=== PATIENT | male | born 1935 | race Caucasian/White ===

== ENCOUNTER 2017-02-03 07:28 | Outpatient (CLI) | payer MEDICARE ==
[~2017-02-03] VITALS: Ht 182.9 cm; Wt 104.5 kg
--- NOTE | ~2017-02-03 | HEMODYNAMI ---
PATIENT:MELLISA MCINTYRE MEDICAL RECORD: [id number] : 37 [facility] AD[facility] DATE: 02/03/17 Generatedon:02/03/201710:05 Patient name: MELLISA MCINTYRE Patient #: [id number] SSN: : 1935 Date of study: 02/03/2017 Page: Of Hemodynamic Procedure Report Patient Data Patient Demographics Procedure consent was obtained First Name: MELLISA Gender: Male Last Name: FRANCISCO JAVIER : 1935 [facility] Initial: TIP Age: 81 year(s) Patient #: [id number] Race: Unknown Additional ID: [id number] Contact details [address]: [address] [place] [address] DRIVE State: [place] City: [place] Zip code: [address] Admission Admission Data Admission Date: 02/03/2017 Admission Time: 7:28 Lab Results Lab Result Date: 02/03/2017 Lab Result Time: 0:00 Biochemistry Name Units Result Min Max BUN mg/dl 20 --(----)*- 7 18 Creatinine mg/dl 1.4 --(----)*- 0.6 1.3 CBC Name Units Result Min Max Hemoglobin g/dl 15.4 --(-*--)-- 13.5 17.5 Procedure Procedure Types Cath Procedure Diagnostic Procedure LHC [facility] w/Coronaries w/Grafts FFR/IVUS Intra-Coronary IVUS Initial PCI Procedure Coronary Stent Coronary Stent Initial Miscellaneous Procedures Moderate Sedation up to 30 minutes Procedure Description Procedure Date Procedure Date: 02/03/2017 Procedure Start Time: 9:46 Procedure End Time: 10:03 Procedure Staff Name Function Mckay Bertrand MD Performing Physician Trina Cook RT Monitor Kristine Nelson RT Scrub Jake Fried RN Nurse Smiley Graves RN Nurse Procedure Data Cath Procedure Fluoroscopy Diagnostic fluoroscopy Total fluoroscopy Time: 5.7 time: 5.7 min min Diagnostic fluoroscopy Total fluoroscopy dose: dose: 1254 mGy 1254 mGy Contrast Material Contrast Material Type Amount (ml) Isovue 300 123 Entry Location Entry Primary Successful Side Size Upsize Upsize Entry Closure Succes sful Closure Location (Fr) 1 (Fr) 2 (Fr) Remarks Device Remarks Femoral Right 5 Fr 6 Fr Exoseal artery Short Estimated blood loss: 5 ml Diagnostic catheters Device Type Used For End Catheter Placement MULTIPACK Pigtail 5 Fr LV Angiography catheter MULTIPACK JL 4.0 5Fr Left Coronary catheter Angiography MULTIPACK 3DRC 5Fr Multi-vessel catheter Angiography DIAGNOSTIC AR 2 MOD 5 Fr Multi-vessel catheter ([id number]) Angiography Procedure Complications No complications Procedure Medications Medication Administration Route Dosage 0.9% NaCl I.V. ml/hr Oxygen NC 2 l/min Lidocaine 2% added to field 20 Heparin Flush Bag added to field 2 bags (1000units/500ml NS) Versed I.V. 1 mg Fentanyl I.V. 50 mcg Fentanyl I.V. 50 mcg Versed I.V. 1 mg Fentanyl I.V. 25 mcg Versed I.V. 0.5 mg Heparin Bolus I.V. 4000 units Hemodynamics Rest HGB: 15.4 (g/dl) Heart Rate: 71 (bpm) Pressure Samples Time Site Value (mmHg) Purpose Heart Use Rate(bpm) 9:48 LV 44/-7,4 Snapshot 72 Snapshots Pre Cath Intra NCS Post Cath Vital Signs Time Heart Resp SPO2 etCO2 NIBP (mmHg) Rhythm Pain Sedation Rate (ipm) (%) (mmHg) Status Level (bpm) 9:26:22 93 14 98 15.8 124/76(92) NSR 0 (11) 10(A) , No pain 9:30:34 74 23 100 27.2 123/72(108) NSR 0 (11) 10(A) , No pain 9:34:42 75 19 99 26.4 121/69(93) NSR 0 (11) 10(A) , No pain 9:38:52 75 19 98 0 100/68(88) NSR 0 (11) 10(A) , No pain 9:42:58 73 16 96 26.4 111/66(86) NSR 0 (11) 10(A) , No pain 9:47:01 64 16 99 16.6 99/62(77) NSR 0 (11) 10(A) , No pain 9:51:09 86 13 94 12.8 96/64(78) NSR 0 (11) 10(A) , No pain 9:55:17 87 13 95 35.5 108/55(92) NSR 0 (11) 10(A) , No pain 9:59:29 89 14 96 36.2 113/58(91) NSR 0 (11) 10(A) , No pain 10:03:43 90 17 97 33.2 124/60(88) NSR 0 (11) 10(A) , No pain Medications Time Medication Route Dose Verified Delivered Reason Notes Effectiveness by by 9:18:33 0.9% NaCl I.V. ml/hr Mckay Buffie used for Jerzy Fried RN procedure 9:18:44 Oxygen NC 2 Mckay Buffie used for l/min Jerzy Fried RN procedure 9:19:02 Lidocaine 2% added 20ml Mckay Mckay for local to vial Jerzy Bertrand MD anesthetic field 9:19:12 Heparin Flush added 2 Mckay Mckay used for Bag to bags Jerzy Bertrand MD procedure (1000units/500ml field NS) 9:37:56 Versed I.V. 1 mg Mckay Thomasie for sedation Jerzy Fried RN 9:43:20 Fentanyl I.V. 50 Mckay Buffie for sedation mcg Jerzy Fried RN 9:46:12 Fentanyl I.V. 50 Mckay Wellsfany for sedation mcg Jerzy Graves RN 9:46:21 Versed I.V. 1 mg Mckay Wellsfany for sedation Jerzy Graves RN 9:49:58 Fentanyl I.V. 25 Mckay Wellsfany for sedation mcg Jerzy Graves RN 9:50:06 Versed I.V. 0.5 Mckay Wellsfany for sedation mg Jerzy Graves RN 9:53:59 Heparin Bolus I.V. 4000 Mckay Smiley for units Jerzy Graves RN anticoagulation Procedure Log Time Note 9:17:14 Diagnostic Cath Status : Elective 9:17:42 Kristine Nelson RT(R) sent for patient. Start room use. 9:17:44 Time tracking: Regular hours 9:17:49 Plan of Care:Hemodynamics will remain stable., Cardiac rhythm will remain stable., Comfort level will be maintained., Respiratory function will remain adequate., Patient/ family verbilizes understanding of procedure., Procedure tolerated without complication., Recovers from procedure without complications.. 9:18:33 0.9% NaCl ml/hr I.V. was administered by Jake Fried RN; used for procedure; 9:18:44 Oxygen 2 l/min NC was administered by Jake Fried RN; used for procedure; 9:19:02 Lidocaine 2% 20ml vial added to field was administered by Mckay Bertrand MD; for local anesthetic; 9:19:12 Heparin Flush Bag (1000units/500ml NS) 2 bags added to field was administered by Mckay Bertrand MD; used for procedure; 9:20:30 Patient received from Pre/Post Procedure Room to CCL 2 Alert and oriented. Tansferred to table in Supine position. 9:20:32 Warm blankets applied, and joelle hugger turned on for patient comfort. 9:20:32 Correct patient and procedure confirmed by team. 9:20:33 Signed procedure consent form obtained from patient. 9:20:34 ECG and BP/O2 sat monitors applied to patient. 9:25:20 Vital chart was started 9:29:23 Baseline sample Acquired. 9:29:27 Rhythm: sinus rhythm 9:29:29 Full Disclosure recording started 9:29:59 H&P Date Dictated: 12/21/2016 H&P Addendum completed by physician on day of procedure. (MUST COMPLETE FOR ALL OUTPATIENTS), New H&P dictated by physician.. 9:30:00 Pre-procedure instructions explained to patient. 9:30:01 Pre-op teaching completed and patient verbalized understanding. 9:30:02 Family in waiting room. 9:30:06 Patient NPO since Midnight. 9:30:11 Is the patient allergic to Iodine/contrast media? No. 9:30:12 Was the patient premedicated? No 9:30:13 Is patient on blood thinner?Yes 9:30:15 ACC The patient was administered the following blood thiners within the last 24 hours: ACCPlavix 9:31:57 Patient diabetic? No. 9:32:00 Previous problem with sedation/anesthesia? No ? 9:32:02 Snore? No 9:32:03 Sleep apnea? No 9:32:03 Deviated septum? No 9:32:04 Opens mouth fully? Yes 9:32:05 Sticks out tongue? Yes 9:32:06 Airway obstruction? No ? 9:32:09 Dentures? No ? 9:32:12 Pre procedure: right dorsailis pedis pulse 1+ Palpable, but thready & weak; easily obliterated 9:32:14 Pre procedure: left dorsailis pedis pulse 1+ Palpable, but thready & weak; easily obliterated 9:32:16 Patient pain scale 0/10 ?. 9:32:39 IV patent on arrival in left forearm with 0.9% NaCl at [facility]. 9:34:25 Lab Result : BUN 20 mg/dl 9:34:25 Lab Result : Creatinine 1.4 mg/dl 9:34:25 Lab Result : Hemoglobin 15.4 g/dl 9:35:06 Lab results completed and on chart. 9:35:10 Right groin area was prepped with chlora-prep and draped in sterile fashion 9:35:11 Alarms reviewed by R. N. 9:35:11 Sharps counted by scrub and verified by R.N. 9:36:04 Physician arrived 9:36:04 --------ALL STOP TIME OUT------ 9:36:07 Final Timeout: patient, procedure, and site verified with staff and physician. All members of the team are in agreement. 9:36:09 Right groin site verified by team. 9:36:11 Physical assessment completed. ASA score P 2 - A patient with mild systemic disease as per Mckay Bertrand MD. 9:36:15 Sedation plan: IV Moderate Sedation Medication:Versed, Fentanyl 9:37:46 Use device set Femoral Dx 9:37:47 ACIST Syringe (37450) opened to sterile field. 9:37:48 Bag Decanter (2002) opened to sterile field. 9:37:48 Medline Cath Pack ([id number]) opened to sterile field. 9:37:49 Terumo 5Fr Solway Sheath opened to sterile field. 9:37:49 St Trung 260cm J .035 wire opened to sterile field. 9:37:50 ACIST Manifold (50449) opened to sterile field. 9:37:51 ACIST Hand Control (65468) opened to sterile field. 9:37:52 DIAGNOSTIC Multipack 5Fr catheter set (AB4604) opened to sterile field. 9:37:52 Tegaderm 4 x 4 (1626W) opened to sterile field. 9:37:53 PERCUTANEOUS ENTRY 19GA needle opened to sterile field. 9:37:53 Cook 4Fr Micropuncture (L75622) opened to sterile field. 9:37:56 Versed 1 mg I.V. was administered by Jake Fried RN; for sedation; 9:37:56 EXOSEAL 5Fr (EX500) opened to sterile field. 9:43:20 Fentanyl 50 mcg I.V. was administered by Jake Fried RN; for sedation; 9:46:12 Fentanyl 50 mcg I.V. was administered by Smiley Graves RN; for sedation; 9:46:21 Versed 1 mg I.V. was administered by Smiley Graves RN; for sedation; 9:46:51 Procedure started. 9:46:56 Local anesthetic to right femoral artery with Lidocaine 2% by Mckay Bertrand MD.INITIAL ACCESS ONLY 9:47:06 A 5 Fr sheath was inserted into the Right Femoral artery 9:47:39 A MULTIPACK Pigtail 5 Fr catheter was advanced over the wire and used for LV Angiography. 9:48:36 LV hemodynamics recorded. 9:48:39 LV gram done using MARTINO 9:48:42 Injector settings: Ml/sec: 5, Volume: 15, 9:48:50 EF : 50 % 9:48:57 Catheter removed. 9:49:02 A MULTIPACK JL 4.0 5Fr catheter was advanced over the wire and used for Left Coronary Angiography. 9:49:28 LCA angiography performed. 9:49:31 Injector settings: Ml/sec: 3, Volume: 6, 9:49:58 Fentanyl 25 mcg I.V. was administered by Smiley Graves RN; for sedation; 9:50:01 Catheter removed. 9:50:06 Versed 0.5 mg I.V. was administered by Smiley Graves RN; for sedation; 9:50:06 A MULTIPACK 3DRC 5Fr catheter was advanced over the wire and used for Multi-vessel Angiography. 9:51:08 ASENCIO angiography performed. 9:51:50 RCA angiography performed. 9:51:56 Injector settings: Ml/sec: 3, Volume: 6, 9:52:38 Catheter removed. 9:53:45 A DIAGNOSTIC AR 2 MOD 5 Fr catheter ([id number]) was advanced over the wire and used for Multi-vessel Angiography. 9:53:59 Heparin Bolus 4000 units I.V. was administered by Smiley Graves RN; for anticoagulation; 9:54:00 SVG to RCA angiography performed. 9:54:03 SVG to Diag angiography performed. 9:54:06 Terumo 6Fr Solway Sheath opened to sterile field. 9:54:07 INFLATOR Merit UbookooixCompak Inflation Kit (WC0369) opened to sterile field. 9:54:08 Borja Whisper 190cm wire opened to sterile field. 9:54:09 Elkins Mechoopda Eagleye IVUS Catheter opened to sterile field. 9:54:15 Cordis 6FR XB 3.5 SH guide catheter opened to sterile field. 9:55:14 Proceeding to intervention. 9:55:20 Sheath upsized to a 6 Fr Short. 9:55:28 6 Fr xb 3.5 sh guide catheter was inserted over the wire 9:55:32 whisper wire advanced. 9:55:43 IVUS catheter advanced over wire. 10:00:04 IVUS pass to LMCA lesion performed. 10:00:05 IVUS catheter removed over wire. 10:01:22 Inflation Number: 1 A Thaxton RX 3.5 x 12 stent was prepped and advanced across the LMCA. The stent was deployed at 13 JUAN for 0:10 (min:sec). 10:02:01 Stent catheter was removed intact over wire. 10:02:02 Wire removed. 10:02:02 Guide catheter removed. 10:02:09 EXOSEAL 6Fr (EX600) opened to sterile field. 10:02:18 Sheath removed intact; hemostasis achieved with Exoseal to the Right Femoral artery. 10:02:19 Procedure ended.(Physican Out) 10:02:43 Fluoroscopy time 05.70 minutes. 10:02:48 Fluoroscopy dose: 1254 mGy 10:02:48 Flurop Dose total: 1254 10:03:01 Contrast amount:Isovue 300 123ml. 10:03:03 Sharps counted by scrub and verified by R.N. 10:03:05 Insertion/operative site no bleeding no hematoma. 10:03:08 Post-op/insertion site Right Femoral artery dressed using a 4 x 4 and Tegaderm. 10:03:10 Post right femoral artery:stable 10:03:12 Post Procedure Pulses reassessed and unchanged 10:03:14 Post procedure rhythm: unchanged. 10:03:17 Estimated blood loss: 5 ml 10:03:18 Post procedure instruction explained to patient.Patient verbalizes understanding. 10:03:19 Patient needs reinforcement of post procedure teaching. 10:03:38 Procedure type changed to Cath procedure, Diagnostic procedure, LHC, LHC w/Coronaries w/Grafts, FFR/IVUS, Intra-Coronary IVUS Initial, PCI procedure, Coronary Stent, Coronary Stent Initial, Miscellaneous Procedures, Moderate Sedation up to 30 minutes 10:03:40 Procedure and supply charges have been captured, reviewed, submitted and are correct. 10:03:44 Procedure Complication : No complications 10:03:46 Vital chart was stopped 10:03:46 See physician's report for complete and final results. 10:03:51 Report given to Pre/Post Procedure Room. 10:03:53 Patient transfered to Pre/Post Procedure Room with Stretcher. 10:03:55 Procedure ended. 10:03:55 Full Disclosure recording stopped 10:04:24 ACC-PCI Only Patient was given prescriptions, or instructed by Mckay Bertrand MD to start/continue the following medications upon discharge: Plavix 10:04:25 End room use (Document Last) Intervention Summary Intervention Notes Time ActionType Lesion and Equipment Action# Pressure Duration Attributes Used 10:01:22 Place stent LMCA Thaxton RX 1 13 00:10 3.5 x 12 stent Device Usage Item Name Manufacture Quantity Catalog Hospital Part [facility] Lot# / Number Charge Number Stock Stock Serial# Code ACIST Syringe Acist 1 89598 577605 819556 965209 20 (35452) Medical Systems Inc Bag Decanter Microtek 1 2001S 955273 71691 149432 5 () Medical Inc. Medline Cath Cardinal 1 [id number] 288825 34898 017506 5 [facility] ([id number]) Terumo 5Fr Terumo 1 FEF116 969228 094101 440556 [address] Trung 260[address] Trung 1 020576 951296 277549 556739 30 J .035 wire ACIST Manifold Acist 1 08913 773085 896606 817374 5 (43153) Medical Systems Inc ACIST Hand Acist 1 18225 876640 043212 207671 5 Control Medical (38700) Systems Inc DIAGNOSTIC Cardinal 1 [id number] 110959 37082 690681 30 Multipack 5Fr Health catheter set (YM9919) Tegaderm 4 x 4 3M 1 1626W 357382 398472 186924 5 (1626W) PERCUTANEOUS Cook Medical 1 L59988 293230 176403 5 ENTRY 19GA needle Cook 4Fr Cook Medical 1 B85593 233415 715819 694883 5 Micropuncture (P64260) EXOSEAL 5Fr Cardinal 1 EX500 128719 002621 343566 10 (EX500) Health MULTIPACK Cardinal 1 794286 5 Pigtail 5 Fr Health catheter MULTIPACK JL Cardinal 1 064239 5 4.0 5Fr Health catheter MULTIPACK 3DRC Cardinal 1 998438 5 5Fr catheter Health DIAGNOSTIC AR Cardinal 1 [id number] 381427 243106 382065 20 2 MOD 5 Fr Health catheter (072349Q) Terumo 6Fr Terumo 1 DJW298 104453 174558 539931 40 Solway Sheath INFLATOR Merit Merit 1 RH4724 026168 320603 456214 15 BasixSimpleSitepaRewarder Medical Inflation Kit (MT4676) Borja Whisper Borja 1 [id number] 210587 770306 744804 5 190cm wire Vascular Elkins Elkins 1 89920U 310084 819509 366630 8 Mechoopda Eagleye IVUS Catheter GUIDE 6FR XB Cardinal 1 [id number] 127131 073323 654895 2 3.5 SH Health catheter ([id number]) SANDY RX 3.5 x Medtronic 1 [id number] 270016 1767647 594809 5 [id number] 12 stent ([id number]) EXOSEAL 6Fr Cardinal 1 EX600 137694 380094 656291 10 (EX600) Health Signature Audit [place] Stage Time Signature Unsigned Intra-Procedure 02/03/2017 Trina Cook 10:05:40 AM RT(R) Signatures Monitor : Trina Cook RT Signature : Date : Time : [facility] [address] [place] [address]
[~2017-02-03 07:28] MED LIST: ASPIRIN325 MG PO; LOTENSIN40 MG PO; NITROSTAT0.4 MG SL; PLAVIX75 MG PO; PRILOSEC20 MG PO; ZEGERID 20 MG C1 CAP PO; ZOCOR40 MG PO
[2017-02-03 07:34] VITALS: BP 120/70; Ht 182.9 cm; Wt 104.5 kg
[2017-02-03 07:53] LABS: HEMOGLOBIN 15.4 g/dL (13.5-17.5); MCH 31.8 pg (26.0-34.0); MCHC 34.2 g/dL (31.0-37.0); MEAN PLATELET VOLUME 10.9 fL (7.4-10.4); NEUTROPHILS 76.5 % (40-80); PLATELET COUNT 133 10x3/uL (130-400); RBC 4.84 10x6/uL (4.20-6.10); RDW 14.5 % (11.5-14.5); WBC 7.2 10x3/uL (4.8-10.8)
[2017-02-03 08:05] LABS: ANION GAP 16.4 mmol/L (8-16); CALCIUM 8.9 mg/dL (8.5-10.1); CARBON DIOXIDE 21.8 mmol/L (21.0-32.0); CREATININE - SERUM 1.4 mg/dL (0.6-1.3); POTASSIUM - SERUM 4.2 mmol/L (3.5-5.1)
--- NOTE | 2017-02-14 12:14 | HP ---
PATIENT: MELLISA MCINTYRE MEDICAL RECORD: [id number] ACCOUNT: [id number] LOCATION:[facility] : 37 ADMISSION DATE: 02/03/17 HISTORY AND PHYSICAL EXAMINATION DIAGNOSES: 1. Angina. 2. Coronary artery disease. 3. Status post coronary artery bypass graft surgery. 4. Hypertension. 5. Hyperlipidemia. HISTORY OF PRESENT ILLNESS: This is a gentleman, status post bypass surgery in the past, who has been having increasing episodes of chest pain and chest discomfort compatible with angina just like that of his previous angina prior to the bypass. PHYSICAL EXAMINATION: GENERAL APPEARANCE: Well-nourished, well-developed, appears stated age. Level of distress, comfortable. PSYCHIATRIC: Mental status, alert, normal affect. Orientation, oriented to time, place and person. EYES: Lids and conjunctiva, noninjected. No discharge, no pallor. ENT: Lips, teeth, gums, normal dentition. Oropharynx, no cyanosis, no pallor. NECK: Carotid arteries, bilateral normal upstroke, no bruits, no thrills. JUGULAR VEINS: No jugular venous pressure or distention. CERVICAL LYMPH NODES: Nontender, nonenlarged. THYROID: Not enlarged. Nontender. No nodules. LUNGS: Respiratory effort, unlabored. CHEST: Normal curvature. No thoracic deformity. No chest wall tenderness. Percussion, resonant. Auscultation, clear. No wheezes, no rales, no rhonchi. CARDIOVASCULAR: Precordial exam, nondisplaced. No heaves or pericardial thrills. Rate and rhythm, regular. Heart sounds, normal S1, normal S2. No S3, no gallop, no rub. Systolic murmur, not heard. Diastolic murmur, not heard. EXTREMITIES: No cyanosis, no edema. Peripheral pulses, full and equal in all extremities, except as noted. No bruits appreciated. ABDOMEN: Soft, nondistended. Normal aorta. No bruit. Nontender. No masses. Liver, nontender, no hepatomegaly. Spleen, nontender, no splenomegaly. MUSCULOSKELETAL: No joint tenderness. No joint swelling. No erythema. NEUROLOGICAL: Normal gait, normal strength, normal tone. SKIN: Warm and dry. REVIEW OF SYSTEMS: The patient reports easy bruising but reports no swollen glands. The patient reports no fever, no night sweats, no significant weight gain, no significant weight loss. No significant exercise tolerance. The patient reports no dry eyes, no irritation, no vision change. Patient reports no difficulty hearing and no ear pain. Patient reports no frequent nose bleeds or nose and sinus problems. Patient reports on arm pain on exertion. No shortness of breath while lying down. No history of heart murmur. Patient reports no cough, no wheezing or coughing up blood. Patient reports no abdominal pain, no vomiting. Normal appetite. No diarrhea and not vomiting blood. No nausea and no constipation. Patient reports no incontinence. No difficulty urinating. No hematuria. No increased frequency. Patient reports no muscle aches. No weakness, no arthralgias, no back pain. No swelling of the extremities. Patient reports no abnormal mole, no jaundice, no rashes. Reports HISTORY AND PHYSICAL [id number] MELLISA MCINTYRE no loss of consciousness. No weakness and no numbness. No seizures, dizziness, or headaches. The patient reports no depression, no sleep disturbance, feeling safe in a relationship and no alcohol abuse. Patient reports on fatigue. Reports no runny nose or sinus pressure. No itching, no hives, and no frequent sneezing. OVERALL IMPRESSION: Chest pain compatible with angina in an escalating fashion. We will proceed with coronary angiography and transcatheter revascularization. TRANSINT:[id number] Voice Confirmation ID: [id number] DOCUMENT ID: [id number] FRANCO FIELD MD at 1214 CC: [id number] DICTATION DATE: 02/03/17 1224 COTTON BUYER: 02/03/17 1332 DEP CLI 02/03/[address] [id number]
--- NOTE | 2017-02-14 12:14 | OP ---
PATIENT NAME: MELLISA MCINTYRE MEDICAL RECORD: [id number] :37 LOCATION:D.CAT ADMISSION DATE: SURGEON: FRANCO FIELD MD DATE OF OPERATION: 02/03/2017 PROCEDURES: 1. PTCA stent of left main. 2. Intravascular ultrasound of left main. 3. Left heart catheterization. 4. Selective coronary angiography. 5. Vein graft angiography. 6. ASENCIO angiography. 7. Left ventriculogram. INDICATION: Angina and coronary artery disease. PROCEDURE IN DETAIL: After informed consent was obtained, after detailed explanation of risks, benefits as well as alternative therapies, the patient elected to proceed with angiogram and angioplasty. The right femoral area was prepped and draped in normal sterile fashion. The right femoral artery was cannulated via modified Seldinger technique with placement of 6-Czech sheath. All catheters exchanged through this sheath. FINDINGS: The left ventriculogram was performed in standard 30-degree MARTINO view, reveals good cardiac wall motion throughout all segments. Overall ejection fraction estimated at 60%. SELECTIVE CORONARY ANGIOGRAPHY: 1. Left main has 80% stenosis confirmed by intravascular ultrasound. This leads into the circumflex. It is not grafted. 2. The left anterior descending is totally occluded. 3. ASENCIO to the LAD is widely patent. 4. Vein graft to the LAD diagonal is widely patent. 5. Right coronary is totally occluded. 6. Vein graft to the right coronary artery is widely patent. Distal right coronary artery is widely patent. PTCA STENT OF THE LEFT MAIN: The stent used was a 3.5 x 12 mm Juan F. Result was 0% residual stenosis. OVERALL IMPRESSION: Successful percutaneous transluminal coronary angioplasty stent of the left main going from 80% initial stenosis leading into the non-grafted circumflex to 0% residual stenosis. TRANSINT:[id number] Voice Confirmation ID: [id number] DOCUMENT ID: [id number] FRANCO FIELD MD at 1214 CC: [id number] DICTATION DATE: 02/03/17 1224 VIDEO RECORDER MECHANIC: 02/03/17 1241 DEP CLI 02/03/17 [place] [address]
== END 2017-02-03 13:55 | disposition home or self-care (01) ==
LOC: D.CATH 07:28
PROVIDERS: Internal Medicine Interventional Cardiology
DX: I25.119 Atherosclerotic heart disease of native coronary artery with unspecified angina pectoris (principal); Z95.1 Presence of aortocoronary bypass graft; I10 Essential (primary) hypertension; E78.5 Hyperlipidemia, unspecified; Z01.812 Encounter for preprocedural laboratory examination
CPT/HCPCS: 92978; 93459; C9600

== ENCOUNTER 2017-05-31 13:33 | Inpatient (IN) | payer MEDICARE ==
[~2017-05-31] VITALS: Ht 182.9 cm; Wt 107.0 kg
[2017-05-31 14:04] LABS: BASOPHILS 0.3 % (0-2); EOSINOPHILS 1.8 % (0-7); HEMATOCRIT 40.3 % (42.0-54.0); HEMOGLOBIN 13.9 g/dL (13.5-17.5); IMMATURE GRANULOCYTES 0.3 % (0-5); LYMPHOCYTES 12.8 % (15-50); MCH 33.3 pg (26.0-34.0); MCHC 34.5 g/dL (31.0-37.0); MCV 96.4 fL (80.0-100.0); MEAN PLATELET VOLUME 10.6 fL (7.4-10.4); MONOCYTES 7.4 % (2-11); NEUTROPHILS 77.4 % (40-80); PLATELET COUNT 141 10x3/uL (130-400); RBC 4.18 10x6/uL (4.20-6.10); WBC 7.4 10x3/uL (4.8-10.8)
[2017-05-31 14:12] LABS: APTT 23.9 SECONDS (22.8-39.4); INR 1.07 (0.85-1.17); PROTIME 13.5 SECONDS (11.6-15.0)
[2017-05-31 14:16] LABS: ALBUMIN 3.7 g/dL (3.4-5.0); ANION GAP 15.2 mmol/L (8-16); BILIRUBIN - TOTAL 0.8 mg/dL (0.2-1.3); CALCIUM 8.5 mg/dL (8.5-10.1); CARBON DIOXIDE 24.4 mmol/L (21.0-32.0); CREATININE - SERUM 1.3 mg/dL (0.6-1.3); POTASSIUM - SERUM 4.6 mmol/L (3.5-5.1); PROTEIN - SERUM 7.1 g/dL (6.4-8.2)
[2017-05-31 20:00] VITALS: BP 122/79
[2017-05-31 23:52] VITALS: BP 122/79; BMI 32.3
[2017-06-01] VITALS: BP 102/46
[2017-06-01 04:00] VITALS: BP 98/52
[2017-06-01 08:29] VITALS: BP 106/67
[2017-06-01 12:51] VITALS: BP 107/64
[2017-06-01 14:32] LABS: CKMB 0.8 U/L (0.0-3.6); CREATINE KINASE 79 UL (21-232); TROPONIN-I < 0.017 ng/mL (0.000-0.060)
[2017-06-01 15:51] VITALS: BP 118/64
[2017-06-01 20:00] VITALS: BP 140/65
[2017-06-01 20:01] LABS: CKMB 0.6 U/L (0.0-3.6); CREATINE KINASE 81 UL (21-232)
[2017-06-01 20:04] LABS: TROPONIN-I < 0.017 ng/mL (0.000-0.060)
[2017-06-02] VITALS: BP 114/50
[2017-06-02 02:06] LABS: CKMB 0.8 U/L (0.0-3.6); CREATINE KINASE 82 UL (21-232); TROPONIN-I < 0.017 ng/mL (0.000-0.060)
[2017-06-02 04:00] VITALS: BP 128/74; BP 147/74; BP 98/40
[2017-06-02 08:40] VITALS: BP 119/62
[2017-06-02 12:36] VITALS: Ht 182.9 cm; Wt 107.0 kg
[2017-06-02 13:01] VITALS: BP 127/60
[2017-06-02] MEDS ORDERED: LOTENSIN40 MG PO (14:39)
== END 2017-06-02 16:19 | disposition home or self-care (01) | DRG 69 ==
LOC: D.ER → EDBD 13:33 → D.MS 16:02 → OBSVTIME 16:02 → D.SDCHOLD 16:27 → D.MS 16:32
PROVIDERS: Emergency Medicine; Internal Medicine Nephrology
DX: G45.9 Transient cerebral ischemic attack, unspecified (principal); N17.9 Acute kidney failure, unspecified; R53.1 Weakness; Z95.1 Presence of aortocoronary bypass graft; I10 Essential (primary) hypertension

== ENCOUNTER 2018-12-13 13:25 | Inpatient (IN) | payer MEDICARE ==
[~2018-12-13] VITALS: Ht 182.9 cm; Wt 107.3 kg
--- NOTE | ~2018-12-13 | HEMODYNAMI ---
PATIENT:MELLISA MCINTYRE MEDICAL RECORD: [id number] : 37 [address] [id number] ADMISSION DATE: 12/13/18 Generatedon:12/14/201810:03 Patient name: MELLISA MCINTYRE Patient #: [id number] SSN: [id number] : 1935 Date of study: 12/14/2018 Page: Of Hemodynamic Procedure Report Patient Data Patient Demographics Procedure consent was obtained First Name: MELLISA Gender: Male Last Name: FRANCISCO JAVIER : 1935 [facility] Initial: TIP Age: 83 year(s) Patient #: [id number] Race: SSN: [id number] Additional ID: [id number] Contact details Address: [address] State: [place] City: [place] Zip code: [address] Past Medical History Allergies Allergen Reaction Date Comments Reported Other allergy 12/14/2018 plavix Admission Admission Data Admission Date: 12/13/2018 Admission Time: 15:03 Arrival Date: 12/14/2018 Arrival Time: 0:00 Admit Source: Emergency Insurance Payor: Medicare department [facility] #: [id number] Room #: [facility] Height (in.): 72.05 BSA: 2.29 (m2) Height (cm.): 183 BMI: 31.95 (kg/m2) Weight (lbs.): 235.9 Weight (kg.): 107 Lab Results Lab Result Date: 12/14/2018 Lab Result Time: 0:00 Biochemistry Name Units Result Min Max BUN mg/dl 19 --(----)*- 7 18 Creatinine mg/dl 1.1 --(--*-)-- 0.6 1.3 eGFR ml/min 67.23586 *-(----)-- 90 120 NONAFRICAN CBC Name Units Result Min Max Hemoglobin g/dl 13.4 -*(----)-- 13.5 17.5 Procedure Procedure Types Cath Procedure Diagnostic Procedure [facility] w/Coronaries w/Grafts Sedation Charges Moderate Sedation up to 15 minutes Procedure Description Procedure Date Procedure Date: 12/14/2018 Procedure Start Time: 9:49 Procedure End Time: 10:02 Procedure Staff Name Function Mckay Bertrand MD Performing Physician Trina Cook RT Monitor Zari Yeh RT Monitor Jaek Fried RN Nurse Judith Hedrick RT Scrub Indication Chest pain Procedure Data Cath Procedure Fluoroscopy Diagnostic fluoroscopy Total fluoroscopy Time: 3 time: 3 min min Diagnostic fluoroscopy Total fluoroscopy dose: dose: 1257 mGy 1257 mGy Contrast Material Contrast Material Type Amount (ml) Isovue 300 98 Entry Location Entry Primary Successful Side Size Upsize Upsize Entry Closure Succes sful Closure Location (Fr) 1 (Fr) 2 (Fr) Remarks Device Remarks Femoral Right 5 Fr Exoseal artery Estimated blood loss: 5 ml Diagnostic catheters Device Type Used For End Catheter Placement MULTIPACK Pigtail 5 Fr LV Angiography catheter MULTIPACK JL 4.0 5Fr Left Coronary catheter Angiography MULTIPACK 3DRC 5Fr Right Coronary catheter Angiography DIAGNOSTIC AR2 MOD 5 Fr Procedure catheter ([id number]) Procedure Complications No complications Procedure Medications Medication Administration Route Dosage Oxygen etCO2 Nasal cannula 2 l/min Lidocaine 2% added to field 20 Heparin Flush Bag added to field 2 bags (1000units/500ml NS) 0.9% NaCl I.V. 100 ml/hr Versed I.V. 1 mg Fentanyl I.V. 50 mcg Versed I.V. 1 mg Fentanyl I.V. 50 mcg Versed I.V. 1 mg Hemodynamics Rest BSA: 2.29 (m2) HGB: 13.4 (g/dl) O2 Consumption: Estimated: 267.75 (ml/min) O2 Co nsumption indexed: Estimated:116.92 (ml/min/m) Heart Rate: 78 (bpm) Snapshots Pre Cath Intra NCS Post Cath Vital Signs Time Heart Resp SPO2 etCO2 NIBP (mmHg) Rhythm Pain Sedation Rate (ipm) (%) (mmHg) Status Level (bpm) 9:35:41 82 28 97 0 156/84(130) NSR 0 (11) 10(A) , No pain 9:39:59 77 24 98 10.5 147/80(117) NSR 0 (11) 10(A) , No pain 9:44:15 74 22 98 10.5 136/76(105) NSR 0 (11) 10(A) , No pain 9:48:33 75 23 98 9.7 130/74(98) NSR 0 (11) 9(A) , No pain 9:52:43 78 19 98 24 121/77(100) NSR 0 (11) 9(A) , No pain 9:56:53 86 25 97 19.5 119/81(100) NSR 0 (11) 10(A) , No pain 10:01:05 75 23 97 26.3 126/78(99) NSR 0 (11) 10(A) , No pain Medications Time Medication Route Dose Verified Delivered Reason Notes Effe ctiveness by by 9:40:06 Oxygen etCO2 2 Mckay Joseph used for Nasal l/min Jerzy Fried RN procedure cannula 9:40:16 Lidocaine 2% added 20ml Mckaynorm Bashir for local to vial Jerzy Bertrand MD anesthetic field 9:40:23 Heparin Flush added 2 Mckaynorm Bashir used for Bag to bags Jerzy Bertrand MD procedure (1000units/500ml field NS) 9:40:31 0.9% NaCl I.V. 100 Mckay Joseph Per ml/hr Jerzy Fried RN physician 9:40:50 Versed I.V. 1 mg Mckay Joseph for Jerzy Fried RN sedation 9:40:56 Fentanyl I.V. 50 Mckay Joseph for haseeb Fried RN sedation 9:47:05 Versed I.V. 1 mg Mckay Joseph for Jerzy Fried RN sedation 9:47:08 Fentanyl I.V. 50 Mckay Joseph for haseeb Fried RN sedation 9:53:45 Versed I.V. 1 mg Mckay Joseph for Jerzy Fried RN sedation Procedure Log Time Note 9:27:22 Informed consent obtained and on chart 9:27:27 Diagnostic Cath Status : Urgent 9:28:24 Indication : Chest pain 9:28:40 Admit Source: Emergency department 9:28:53 Procedure Status Urgent Heart Cath (IP). 9:28:58 Jake Fried RN sent for patient. Start room use. 9:29:01 Time tracking: Regular hours (M-F 7:00 - 5:00) 9:29:08 Plan of Care:Hemodynamics will remain stable., Cardiac rhythm will remain stable., Comfort level will be maintained., Respiratory function will remain adequate., Patient/ family verbilizes understanding of procedure., Procedure tolerated without complication., Recovers from procedure without complications.. 9:29:37 ACC Patient presents with Stable Angina CCS Anginal Class 1--Ordinary physical activity does not cause angina, angina occurs with strenuos, rapid, or prolonged activity.. 9:29:57 Patient received from Med II to CCL 1 Alert and oriented. Tansferred to table in Supine position. 9:31:16 Lab Result : Hemoglobin 13.4 g/dl 9::16 Lab Result : eGFR NONAFRICAN 67.00151 ml/min 9:31:16 Lab Result : BUN 19 mg/dl ::16 Lab Result : Creatinine 1.1 mg/dl 9:34:16 Vital chart was started 9:35:42 ACCPatient has been prescribed/administered the following anti-anginal medication within the last 2 weeks: DURGA-Inhibitor 9:35:46 Warm blankets applied, and joelle hugger turned on for patient comfort. 9:35:47 Correct patient and procedure confirmed by team. 9:35:48 ECG and BP/O2 sat monitors applied to patient. 9:35:50 Baseline sample Acquired. 9:36:04 Rhythm: sinus rhythm 9:36:08 Full Disclosure recording started 9:36:14 H&P Date Dictated: 12/14/2018 Within 30 days and on chart.. 9:36:15 Pre-procedure instructions explained to patient. 9:36:16 Pre-op teaching completed and patient verbalized understanding. 9:36:55 Family unavailable. 9:36:59 Patient NPO since Midnight. 9:37:11 Patient allergic to Other allergyplavix 9:37:18 Is the patient allergic to Iodine/contrast media? No. 9:37:31 Is patient on blood thinner?Yes 9:37:38 ACC The patient was administered the following blood thiners within the last 24 hours: ACCEffient 9:37:44 Patient diabetic? No. 9:37:47 - 9:37:48 ----Pre-sedation anethsthesia assessment.---- 9:37:53 Snore? Yes 9:37:55 Sleep apnea? No 9:37:58 Deviated septum? No 9:38:02 Opens mouth fully? Yes 9:38:04 Sticks out tongue? No 9:38:10 Dentures? No ? 9:39:03 Patient pain scale 0/10 ?. 9:39:07 Pre procedure: right dorsailis pedis pulse 1+ Palpable, but thready & weak; easily obliterated 9:39:11 Pre procedure: left dorsailis pedis pulse 1+ Palpable, but thready & weak; easily obliterated 9:39:27 IV patent on arrival in left forearm with 0.9% NaCl at KVO. 9:39:37 Lab results completed and on chart. 9:39:41 Right groin area was prepped with chlora-prep and draped in sterile fashion 9:39:48 Alarms reviewed by R. N. 9:39:49 Sharps counted by scrub and verified by R.N. 9:39:50 Physician arrived 9:39:51 --------ALL STOP TIME OUT------ 9:39:52 Final Timeout: patient, procedure, and site verified with staff and physician. All members of the team are in agreement. 9:39:56 Right groin site verified by team. 9:40:06 Oxygen 2 l/min etCO2 Nasal cannula was administered by Jake Fried RN; used for procedure; Verbal order read back and verified. 9:40:12 Fire Safety Assessment: A--An alcohol-based skin anteseptic being used preoperatively., C--Open oxygen or nitrous oxide is being used., D--An ESU, laser, or fiber-optic light is being used. 9:40:16 Lidocaine 2% 20ml vial added to field was administered by Mckay Bertrand MD; for local anesthetic; Verbal order read back and verified. 9:40:18 Physical assessment completed. ASA score P 2 - A patient with mild systemic disease as per Mckay Bertrand MD. 9:40:23 Heparin Flush Bag (1000units/500ml NS) 2 bags added to field was administered by Mckay Bertrand MD; used for procedure; Verbal order read back and verified. 9:40:26 2) 60-89 Mildly reduced kidney function, and other findings (as for stage 1) point to kidney disease. 9:40:31 0.9% NaCl 100 ml/hr I.V. was administered by Jake Fried RN; Per physician; Verbal order read back and verified. 9:40:31 Maximum allowable contrast dose (3.7 X eGFR X 0.75)189 ml. 9:40:39 Sedation plan: IV Moderate Sedation Medication:Versed, Fentanyl 9:40:49 Use device set Femoral Dx 9:40:50 Versed 1 mg I.V. was administered by Jake Fried RN; for sedation; Verbal order read back and verified. 9:40:51 ACIST Syringe (63498) opened to sterile field. 9:40:51 Bag Decanter (2002S) opened to sterile field. 9:40:52 Medline Cath Pack ([id number]) opened to sterile field. 9:40:55 ACIST Hand Control (76074) opened to sterile field. 9:40:56 Fentanyl 50 mcg I.V. was administered by Jake Fried RN; for sedation; Verbal order read back and verified. 9:40:59 ACIST Manifold (17049) opened to sterile field. 9:41:00 DIAGNOSTIC Multipack 5Fr catheter set (CV5700) opened to sterile field. 9:41:01 Tegaderm 4 x 4 (1626W) opened to sterile field. 9:41:04 SHEATH 5FR [place] (NFI689) opened to sterile field. 9:41:05 EMERALD Guide Wire (502-752) opened to sterile field. 9:43:44 Arrival Date: 12/14/2018 12:00:00 AM 9:44:03 Insurance Payor : Medicare 9:44:16 Patient Height : 72.05 inches 9:44:23 Patient Weight : 235.9 lbs 9:47:05 Versed 1 mg I.V. was administered by Jake Fried RN; for sedation; Verbal order read back and verified. 9:47:08 Fentanyl 50 mcg I.V. was administered by Jake Fried RN; for sedation; Verbal order read back and verified. 9:49:03 Procedure started. 9:49:24 Local anesthetic to right femoral artery with Lidocaine 2% by Mckay Bertrand MD.INITIAL ACCESS ONLY 9:49:42 A 5 Fr sheath was inserted into the Right Femoral artery 9:50:32 Zero performed for pressure channel P1 9:50:41 Zero performed for pressure channel P1 9:50:54 Zero performed for pressure channel P1 9:51:01 Zero performed for pressure channel P1 9:51:30 A MULTIPACK Pigtail 5 Fr catheter was advanced over the wire and used for LV Angiography. 9:51:34 LV gram done using MARTINO 9:51:39 Zero performed for pressure channel P1 9:51:47 Zero performed for pressure channel P1 9:51:54 Zero performed for pressure channel P1 9:52:07 EF : 35 % 9:52:14 A MULTIPACK JL 4.0 5Fr catheter was advanced over the wire and used for Left Coronary Angiography. 9:52:19 LCA angiography performed. 9:52:24 Zero performed for pressure channel P1 9:52:25 Catheter removed. 9:53:08 A MULTIPACK 3DRC 5Fr catheter was advanced over the wire and used for Right Coronary Angiography. 9:53:11 Zero performed for pressure channel P1 9:53:17 Zero performed for pressure channel P1 9:53:45 Versed 1 mg I.V. was administered by Jake Fried RN; for sedation; Verbal order read back and verified. 9:53:54 ASENCIO to LAD angiography performed. 9:54:09 RCA angiography performed. 9:54:49 ACCDominant side:Right 9:55:18 Catheter removed. 9:55:28 A DIAGNOSTIC AR2 MOD 5 Fr catheter ([id number]) was advanced over the wire and used for Procedure. 9:55:40 SVG to Circ angiography performed. 9:56:07 SVG to RCA angiography performed. 9:56:46 Catheter removed. 9:56:52 EXOSEAL 5Fr (EX500) opened to sterile field. 9:57:48 Sheath removed intact; hemostasis achieved with Exoseal to the Right Femoral artery. 9:57:51 Procedure ended.(Physican Out) 9:58:01 Fluoroscopy time 03.00 minutes. 9:58:10 Flurop Dose total: 1257 9:58:10 Fluoroscopy dose: 1257 mGy 9:58:21 Dose Area Product 76660 mGy/cm. 9:58:27 Contrast amount:Isovue 300 98ml. 9:58:30 Maximum allowable dose exceeded? No. 9:58:32 Sharps counted by scrub and verified by R.N. 9:58:35 Insertion/operative site no bleeding no hematoma. 9:58:40 Post-op/insertion site Right Femoral artery dressed using a 4 x 4 and Tegaderm. 9:58:46 Post Procedure Pulses reassessed and unchanged 9:58:52 Post-procedure physical assessment completed. ASA score P 2 - A patient with mild systemic disease as per Mckay Bertrand MD. 9:58:58 Post procedure rhythm: unchanged. 9:59:04 Estimated blood loss: 5 ml 9:59:06 Post procedure instruction explained to patient.Patient verbalizes understanding. 9:59:09 Patient needs reinforcement of post procedure teaching. 9:59:27 Procedure type changed to Cath procedure, Diagnostic procedure, [facility], C w/Coronaries w/Grafts, Sedation Charges, Moderate Sedation up to 15 minutes 10:01:22 Procedure and supply charges have been captured, reviewed, submitted an d are correct. 10:01:31 Procedure Complication : No complications 10:01:44 Vital chart was stopped 10:01:58 [facility] Findings: mild to moderate CAD (<70%) 10:02:05 Operative report dictated upon procedure completion. 10:02:06 See physician's report for complete and final results. 10:02:[address] [facility]. 10:02:[address] [facility] with Bed. 10:02:21 Procedure ended. 10:02:21 Full Disclosure recording stopped 10:02:30 End room use (Document Last) Device Usage Item Name Manufacture Quantity Catalog Hospital Part Current Minimal L ot# / Number Charge Number Stock Stock Serial# Code ACIST Acist 1 26442 686763 348919 228713 20 Syringe Medical (85759) Systems Inc Bag Microtek 1 805568 92349 214466 5 Decanter Medical Inc. () Medline Medline 1 [id number] 838718 71148 276412 5 Cath Pack ([id number]) ACIST Hand Acist 1 55782 611856 743281 789848 5 Control Medical (89760) Systems Inc ACIST Acist 1 76199 395689 151421 788019 5 Axiata (10654) Systems Inc DIAGNOSTIC Cardinal 1 FD4844 756314 36562 725489 30 Multipack Health 5Fr catheter set (WH4476) Tegaderm 4 3M 1 1626W 861467 263915 250452 5 x 4 (1626W) SHEATH 5FR Terumo 1 OZX024 604144 927862 796731 5 [place] (TYS113) EMERALD Cardinal 1 502-455 194519 843727 281821 5 Guide Wire [facility] (502-455) MULTIPACK Cardinal 1 950830 5 Pigtail 5 Health Fr catheter MULTIPACK Cardinal 1 616921 5 JL 4.0 5Fr Health catheter MULTIPACK Cardinal 1 172272 5 3DRC 5Fr Health catheter DIAGNOSTIC Cardinal 1 [id number] 959019 500432 682237 20 AR2 MOD 5 Health Fr catheter (553306D) EXOSEAL 5Fr Cardinal 1 EX500 342047 208941 307285 10 (EX500) Health Signature Audit Casar Stage Time Signature Unsigned Intra-Procedure 12/14/2018 Zari 10:02:52 AM Rao RT(R) (CV) Intra-Procedure 12/14/2018 Jake Fried RN 10:03:20 AM Intra-Procedure 12/14/2018 Mckay Bertrand 10:03:44 AM [place] [id number] [facility] [place] [address]
[2018-12-13 13:53] LABS: BASOPHILS 0.2 % (0-2); EOSINOPHILS 1.9 % (0-7); HEMATOCRIT 43.1 % (42.0-54.0); HEMOGLOBIN 14.8 g/dL (13.5-17.5); IMMATURE GRANULOCYTES 0.2 % (0-5); LYMPHOCYTES 23.5 % (15-50); MCH 32.7 pg (26.0-34.0); MCHC 34.3 g/dL (31.0-37.0); MCV 95.1 fL (80.0-100.0); MEAN PLATELET VOLUME 10.8 fL (7.4-10.4); MONOCYTES 10.7 % (2-11); NEUTROPHILS 63.5 % (40-80); PLATELET COUNT 169 10x3/uL (130-400); RBC 4.53 10x6/uL (4.20-6.10); RDW 13.9 % (11.5-14.5); WBC 5.9 10x3/uL (4.8-10.8)
[2018-12-13 14:05] LABS: INR 1.06 (0.85-1.17); PROTIME 13.3 SECONDS (11.6-15.0)
[2018-12-13 14:06] LABS: APTT 26.5 SECONDS (22.8-39.4)
[2018-12-13 14:10] LABS: ALBUMIN 3.5 g/dL (3.4-5.0); ALKALINE PHOSPHATASE 60 U/L (46-116); ALT (SGPT) 17 U/L (10-68); BILIRUBIN - TOTAL 0.71 mg/dL (0.2-1.3); CALC OSMOLALITY 289 mosm/kg (275-300); CALCIUM 8.7 mg/dL (8.5-10.1); CARBON DIOXIDE 29.6 mmol/L (21.0-32.0); CHLORIDE - SERUM 109 mmol/L (98-107); CREATININE - SERUM 1.2 mg/dL (0.6-1.3); GLUCOSE 97 mg/dL (74-106); POTASSIUM - SERUM 4.7 mmol/L (3.5-5.1); PROTEIN - SERUM 7.1 g/dL (6.4-8.2); SODIUM 144 mmol/L (136-145); UREA NITROGEN 20 mg/dL (7-18); eGFR NON AFRICAN AMERICAN 61 mL/min (90-120)
[2018-12-13 14:32] LABS: CKMB 2.7 U/L (0.0-3.6); CREATINE KINASE 170 UL (21-232); MAGNESIUM - SERUM 1.8 mg/dL (1.8-2.4); TROPONIN-I < 0.017 ng/mL (0.000-0.060)
[2018-12-13 15:44] VITALS: BP 140/76
[2018-12-13 15:48] LABS: CKMB 2.8 U/L (0.0-3.6); CREATINE KINASE 173 UL (21-232)
[2018-12-13 15:49] LABS: TROPONIN-I < 0.017 ng/mL (0.000-0.060)
[2018-12-13 16:44] VITALS: BP 144/77
--- NOTE | 2018-12-13 16:48 | NUR ---
REPORT TO CLAUDIA. ROOM IS DIRTY AND WILL CALL WILL CLEAN. ROOM 1226
--- NOTE | 2018-12-13 17:00 | NUR ---
iv rocephin stop time 1620 zithromax stop time 1700
[2018-12-13 17:24] VITALS: Ht 182.9 cm; Wt 107.3 kg
--- NOTE | 2018-12-13 19:10 | NUR ---
BEDSIDE REPORT RECEIVED FROM DAY SHIFT, PT CARE ASSUMED. INTRODUCED SELF AND WROTE NAME ON BOARD. PT SITTING UP IN BEDSIDE CHAIR WATCHING TV, AAOX4. DENIES ANY NEEDS AT THIS TIME. BED IN LOWEST POSITION, CALL LIGHT WITHIN REACH. WILL CONTINUE TO MONITOR.
[2018-12-13 20:00] VITALS: BP 130/73
[2018-12-13 21:43] LABS: CKMB 1.9 U/L (0.0-3.6); CREATINE KINASE 135 UL (21-232)
[2018-12-13 21:53] LABS: TROPONIN-I < 0.017 ng/mL (0.000-0.060)
[2018-12-14 00:01] VITALS: BP 113/55
[2018-12-14 03:30] LABS: BASOPHILS 0.1 % (0-2); EOSINOPHILS 2.6 % (0-7); HEMATOCRIT 39.6 % (42.0-54.0); HEMOGLOBIN 13.4 g/dL (13.5-17.5); IMMATURE GRANULOCYTES 0.1 % (0-5); LYMPHOCYTES 23.6 % (15-50); MCH 32.4 pg (26.0-34.0); MCHC 33.8 g/dL (31.0-37.0); MCV 95.9 fL (80.0-100.0); MEAN PLATELET VOLUME 10.6 fL (7.4-10.4); MONOCYTES 10.5 % (2-11); NEUTROPHILS 63.1 % (40-80); PLATELET COUNT 140 10x3/uL (130-400); RBC 4.13 10x6/uL (4.20-6.10); RDW 13.9 % (11.5-14.5); WBC 7.2 10x3/uL (4.8-10.8)
--- NOTE | 2018-12-14 03:51 | NUR ---
PT LYING IN BED WITH EYES CLOSED, RR EVEN AND NONLABORED, NO S/S OF DISTRESS, AROUSES EASILY TO VOICE. DENIES ANY NEEDS AT THIS TIME. BED IN LOWEST POSITION, SR X1, CALL LIGHT WITHIN REACH. WILL CONTINUE TO MONITOR.
[2018-12-14 04:00] VITALS: BP 143/78
[2018-12-14 04:01] LABS: ALBUMIN 3.2 g/dL (3.4-5.0); ALKALINE PHOSPHATASE 49 U/L (46-116); BILIRUBIN - TOTAL 1.24 mg/dL (0.2-1.3); CALC OSMOLALITY 284 mosm/kg (275-300); CALCIUM 8.1 mg/dL (8.5-10.1); CARBON DIOXIDE 27.9 mmol/L (21.0-32.0); CHLORIDE - SERUM 108 mmol/L (98-107); CHOL - HDL RATIO 3.4 ratio (2.3-4.9); CHOLESTEROL, TOTAL 93 mg/dL (0-200); CKMB 1.4 U/L (0.0-3.6); CREATINE KINASE 115 UL (21-232); CREATININE - SERUM 1.1 mg/dL (0.6-1.3); GLUCOSE 99 mg/dL (74-106); HDL CHOLESTEROL 27 mg/dL (32-96); LDL CHOLESTEROL 52 mg/dL (0-100); LDL-HDL RATIO 1.9 ratio (1.5-3.5); MAGNESIUM - SERUM 1.7 mg/dL (1.8-2.4); PHOSPHOROUS 3.2 mg/dL (2.5-4.9); POTASSIUM - SERUM 4.1 mmol/L (3.5-5.1); PROTEIN - SERUM 6.2 g/dL (6.4-8.2); SODIUM 142 mmol/L (136-145); TRIGLYCERIDE 72 mg/dL (30-200); UREA NITROGEN 19 mg/dL (7-18); eGFR NON AFRICAN AMERICAN 68 mL/min (90-120)
[2018-12-14 04:06] LABS: ALT (SGPT) 10 U/L (10-68); TROPONIN-I < 0.017 ng/mL (0.000-0.060)
--- NOTE | 2018-12-14 05:00 | NUR ---
CONSENTS SIGNED AND WITNESSED FOR PROCEDURE THIS AM. PT INSTRUCTED ON USE OF HIBICLENS AND CLIPPERS, AND TO PRESS CALL LIGHT FOR HELP IF NEEDED. PT VERBALIZES UNDERSTANDING. WILL CONTINUE TO MONITOR.
--- NOTE | 2018-12-14 07:04 | NUR ---
REPORT RECEIVED. WILL CONTINUE WITH POC. PT CURRENTLY LYING ON LEFT SIDE ASLEEP WITH EYES CLOSED. CALL LIGHT W/I REACH. RR EVEN AND UNLABORED ON RA. NS INFUSING @50ML/HR VIA L.AC PIV. NO S/S OF DISTRESS NOTED. PT DENIES ANY NEEDS. WILL CTM.
[2018-12-14 08:00] VITALS: BP 155/92
--- NOTE | 2018-12-14 10:14 | NUR ---
RECEIVED PT FROM GATE MORTISER OPERATOR. RIGHT FEMORAL CATH SITE IS C/D/I WITH NO S/S OF HEMATOMA PRESENT. PERIPHERAL PULSES BILATERALLY EVEN AND STRONG. PT DENIES ANY NEEDS. NS INFUSING @200ML/HR VIA L.AC PIV. WILL CTM.
--- NOTE | 2018-12-14 11:08 | NUR ---
I have reviewed this patient and I concur with the Shift Assessment completed by the Licensed Practical Nurse today this shift.
[2018-12-14 12:00] VITALS: BP 120/61
[2018-12-14] MEDS ORDERED: ISOSORBIDE MONO30 M1 PO (12:45)
--- NOTE | 2018-12-14 12:53 | MORECARE ---
CASE MANAGEMENT DISCHARGE SUMMARY PATIENT: MELLISA MCINTYRE UNIT: [id number] ADM DATE: 12/13/18 AGE: 83 : [birth year] SEX: M ROOM/BED: D.9269 AUTHOR: CEFERINO,DOC PHYSICIAN: REFERRING PHYSICIAN: JEFF WOO MD DATE OF SERVICE: 12/14/18 Discharge Plan Patient Name: MELLISA MCINTYRE Facility: [facility]:[place] : 1935 Planned Disposition: Home Anticipated Discharge Date: 12/14/18 Discharge Date: Expected LOS: 1 Initial Reviewer: [email or web address] Initial Review Date: 12/14/2018 Generated: 12/14/18 1:53 pm Comments DCP- Discharge Planning Updated by [email or web address]: Rich Elizondo on 12/14/18 11:[address] Patient Name: MELLISA MCINTYRE Admission Status: ER Accout number: [id number] Admission Date: 12-13-2018 : 1935 Admission Diagnosis: Attending: JEFF WOO Current LOS: 1 Anticipated DC Date: 12-14-2018 Planned Disposition: Home Primary Insurance: MEDICARE A & B Discharge Planning Comments: CM MET WITH PT IN ROOM TO DISCUSS DISCHARGE PLANNING AND NEEDS. PT REPORTS LIVING AT HOME INDEPENDENTLY WITH HIS . PT HAS NO MEDICAL EQUIPMENT AND NO OUTSIDE SERVICES ASSISTING IN THE HOME. CM DISCUSSED AVAILABILITY OF HOME HEALTH, REHAB SERVICES AND MEDICAL EQUIPMENT. PT DENIES DISCHARGE NEEDS, REPORTS HIS WILL PICK HIM UP FOR DISCHARGE HOME. Drilling Fluids Specialist: Rich Elizondo DCPIA - Discharge Planning Initial Assessment Updated by [email or web address]: Rich Elizondo on 12/14/18 12:50 pm * Is the patient Alert and Oriented? Yes * How many steps to enter\exit or inside your home? 15 * PCP DR. BISHOP * [facility] [place] * Preadmission Environment Home with Family * ADLs Independent * Equipment None * Other Equipment NO MEDICAL EQUIPMENT PROVIDER PREFERENCE * List name and contact numbers for known caregivers / representatives who currently or will assist patient after discharge: SANDIE MCINTYRE, SPOUSE, * Verbal permission to speak to the caregivers and representatives has been obtained from the patient. N/A * Community resources currently utilized None * Please name any agencies selected above. NONE * Additional services required to return to the preadmission environment? No * Can the patient safely return to the preadmission environment? Yes * Has this patient been hospitalized within the prior 30 days at any hospital? No Patient Name: MELLISA MCINTYRE Page [phone] at 1253 All edits/amendments must be made on the electronic document DICTATION DATE: 12/14/181251 NOODLE CATALYST MAKER: CHELA 12/14/181251 RPT#: [id number] DC DATE: STATUS: ADM IN [facility] [address] [place] [address] END OF REPORT
--- NOTE | 2018-12-14 13:11 | NUR ---
PT DISCHARGED HOME VIA WHEELCHAIR WITH FAMILY. PIV REMOVED WITH CATHETER TIP FULLY INTACT. TELEMETRY REMOVED AND RETURNED. FLU VACCINE ADMINISTERED VIA R.DELTOID. PT SIGNED PROPER DISCHARGE INSTRUCTION AND REMOVED ALL VALUABLES FROM THE ROOM.
--- NOTE | 2018-12-17 11:10 | DS ---
PATIENT:MELLISA MCINTYRE :[birth year] MEDICAL RECORD: [id number] DISCHARGE SUMMARY ADMISSION DATE: 12/13/18 DISCHARGE DATE: 12/14/18 DISCHARGE DIAGNOSES: 1. Unstable angina. 2. Coronary artery disease. 3. Status post coronary bypass graft surgery. 4. Status post PTCA stent. 5. Hypertension. 6. Hyperlipidemia. HOSPITAL COURSE: Mr. Mcintyre presents with unstable anginal symptomatology; however, cardiac catheterization reveals wide patency of all his bypass grafts, diffuse disease elsewise in the distal vessels. He had the addition of Imdur to his medical regimen. We will follow up with [facility] in 1 month. TRANSINT:[id number] Voice Confirmation ID: [id number] DOCUMENT ID: [id number] FRANCO FIELD MD at 1110 CC: [id number] DICTATION DATE: 12/14/18 1001 TURN DOWN WORKER: 12/15/18 0153 DIS IN 12/14/18 [facility] [address] [place] [address]
--- NOTE | 2018-12-17 11:10 | OP ---
PATIENT NAME: MELLISA MCINTYRE MEDICAL RECORD: [id number] :[birth year] LOCATION:D.M2 D.2125 ADMISSION DATE:12/13/18 SURGEON: FRANCO FIELD MD DATE OF OPERATION: 12/14/2018 PROCEDURES: 1. Left heart catheterization. 2. Selective coronary angiography. 3. Left ventriculogram. 4. Vein graft angiography. 5. ASENCIO angiography. INDICATION: Unstable angina and coronary artery disease. PROCEDURE IN DETAIL: After informed consent was obtained and after a detailed description of the risks, benefits as well as alternative therapies, the patient elected to proceed with angiogram and heart catheterization. The right femoral area was prepped and draped in normal sterile fashion. Right femoral artery was cannulated via modified Seldinger technique with placement of 5-Indonesian sheath. All catheters exchanged through this sheath. FINDINGS: Left ventriculogram was performed in standard 30-degree MARTINO view, reveals global hypokinesis throughout all segments. Overall ejection fraction in the 35% to 40% range. SELECTIVE CORONARY ANGIOGRAPHY: 1. Left main is with no significant angiographic disease. Previously placed stent is widely patent. 2. Left anterior descending is totally occluded. 3. ASENCIO to the LAD is widely patent. Distal LAD is widely patent. 4. Ramus intermedius is totally occluded. The circumflex elsewise has only mild irregularities. 5. Vein graft to the circumflex, ramus intermedius is widely patent. Distal ramus intermedius is widely patent. 6. The right coronary artery has high-grade stenosis in the mid vessel. 7. Vein graft to the right coronary is widely patent. Distal right coronary is widely patent. OVERALL IMPRESSION: Wide patency of the left main stent as well as all previous bypass grafts. Continue medical management of the coronary artery disease and cardiac risk factors. TRANSINT:[id number] Voice Confirmation ID: [id number] DOCUMENT ID: [id number] FRANCO FIELD MD at 1110 CC: [id number] DICTATION DATE: 12/14/18 1003 BUSINESS DEVELOPMENT ASSOCIATE: 12/14/18 1059 DIS IN 12/14/18 [facility] [address] [place] [address]
--- NOTE | 2018-12-17 11:10 | CN ---
PATIENT NAME:MELLISA MCINTYRE MEDICAL RECORD: [id number] : 37 LOCATION:D. D.2125 ADMIT DATE: 12/13/18 ACCOUNT: [id number] CONSULTING PHYSICIAN: FRANCO FIELD MD REFERRING PHYSICIAN: JEFF WOO MD DATE OF CONSULTATION: 12/13/2018 CARDIOLOGY CONSULTATION DIAGNOSES: 1. Unstable angina. 2. Coronary artery disease. 3. Previous percutaneous transluminal coronary angioplasty stent, left main and RCA, February 2017. 4. Hypertension. 5. Hyperlipidemia. 6. Family history of coronary artery disease. HISTORY OF PRESENT ILLNESS: This is a gentleman who presents with relatively severe chest discomfort. It was just like that of his previous angina. In fact, it was worse than his previous angina. He had a severe pressure and dull aching sensation in the center of his anterior chest with radiation to his back. It was not positional, not worse with a deep inspiration. He has had no cough, no fevers, no chills. No signs or symptoms of pneumonia. His chest x-ray was read as a possible pneumonia. He is being treated for pneumonia. This was like his previous angina. It lasted until he received sublingual nitro here. It was relieved, but it is now actually returned. His EKG; however, has no acute ST-T abnormalities. PHYSICAL EXAMINATION: CONSTITUTIONAL/GENERAL APPEARANCE: Well nourished, well developed, appears stated age. EYES: Lids and conjunctivae noninjected. No discharge. No pallor. ENT: Lips within normal limit. No cyanosis. No pallor. NECK: Carotid arteries, bilateral normal upstroke. No bruits. No thrills. No jugular venous pressure or distention. CERVICAL LYMPH NODES: Nontender. Nonenlarged. THYROID: Not enlarged. No nodules. CARDIOVASCULAR: Precordial exam, nondisplaced. No heaves or pericardial thrills. Rate and rhythm, regular. Heart sounds, normal S1, normal S2. No S3, no gallop, no rub. Systolic murmur, not heard. Diastolic murmur, not heard. RESPIRATORY: Respiratory effort, unlabored. Normal curvature. No thoracic deformity. No chest wall tenderness. Percussion, resonant. Auscultation, clear. No wheezes, no rales, no rhonchi. ABDOMEN: Soft, nondistended, nontender. No abdominal pain, no vomiting and normal appetite. MUSCULOSKELETAL: No joint tenderness, normal gait, normal tone. SKIN: Warm and dry. OVERALL IMPRESSION: Severe chest discomfort compatible with angina with recurrence of pain in a patient with a past history of left main and RCA stenting. It is very concerning that he has recurrent hemodynamically significant coronary artery disease, especially of the left main area causing his symptomatology in a patient with hypertension, hyperlipidemia, family history of coronary artery disease, known coronary disease and on aspirin CONSULT REPORT [id number] MELLISA MCINTYRE therapy. We will reload with Plavix, proceed with coronary angiography in the a.m. TRANSINT:[id number] Voice Confirmation ID: [id number] DOCUMENT ID: [id number] FRANCO FIELD MD at 1110 CC: [id number] DICTATION DATE: 12/13/18 1540 FNPS: 12/13/18 2324 DIS IN 12/14/18 [facility] [address] [place] [address]
== END 2018-12-14 13:15 | disposition home or self-care (01) | DRG 286 ==
LOC: D.ER 13:25 → D.M2 15:03
PROVIDERS: Family Medicine; Internal Medicine Interventional Cardiology; ADMIT Internal Medicine Nephrology; ATTEND Internal Medicine Nephrology
PROC: B2151ZZ Fluoroscopy of Left Heart using Low Osmolar Contrast (ICD-10-PCS; 2018-12-14)
PROC: B2181ZZ Fluoroscopy of Left Internal Mammary Bypass Graft using Low Osmolar Contrast (ICD-10-PCS; 2018-12-14)
PROC: B2121ZZ Fluoroscopy of Single Coronary Artery Bypass Graft using Low Osmolar Contrast (ICD-10-PCS; 2018-12-14)
PROC: 4A023N7 Measurement of Cardiac Sampling and Pressure, Left Heart, Percutaneous Approach (ICD-10-PCS; 2018-12-14)
PROC: B2111ZZ Fluoroscopy of Multiple Coronary Arteries using Low Osmolar Contrast (ICD-10-PCS; principal; 2018-12-14 13:00)
DX: I25.110 Atherosclerotic heart disease of native coronary artery with unstable angina pectoris (principal); J18.1 Lobar pneumonia, unspecified organism; N17.9 Acute kidney failure, unspecified; I10 Essential (primary) hypertension; E78.5 Hyperlipidemia, unspecified; E83.42 Hypomagnesemia; K21.9 Gastro-esophageal reflux disease without esophagitis

== ENCOUNTER 2018-12-22 08:18 | Emergency (ER) | payer MEDICARE ==
[2018-12-13 17:24] VITALS: Ht 182.9 cm; Wt 109.1 kg
[~2018-12-22] VITALS: Ht 182.9 cm; Wt 109.1 kg
[~2018-12-22 08:18] MED LIST changes: +ISOSORBIDE MONO30 M1 PO
[2018-12-22 08:22] VITALS: BP 168/83
== END 2018-12-22 08:50 | disposition home or self-care (01) ==
LOC: D.ER 08:18
DX: S61.011A Laceration without foreign body of right thumb without damage to nail, initial encounter (principal); W25.XXXA Contact with sharp glass, initial encounter; I10 Essential (primary) hypertension; K21.9 Gastro-esophageal reflux disease without esophagitis; I25.10 Atherosclerotic heart disease of native coronary artery without angina pectoris